=== PATIENT | male | born 1975 | race Caucasian/White ===

== ENCOUNTER 2016-12-15 17:17 | Emergency (ER) | payer BC | END 2016-12-15 17:20 | disposition left against medical advice (07) | LOC: UCEAST 17:17 | DX: M62.830 Muscle spasm of back (principal); Z53.21 Procedure and treatment not carried out due to patient leaving prior to being seen by health care provider ==

== ENCOUNTER 2016-12-15 17:53 | Emergency (ER) | payer BC | END 2016-12-15 19:39 | disposition left against medical advice (07) | LOC: UCEAST 17:53 | DX: M62.830 Muscle spasm of back (principal); Z53.21 Procedure and treatment not carried out due to patient leaving prior to being seen by health care provider ==

== ENCOUNTER 2017-06-16 07:22 | Emergency (ER) | payer BC ==
--- NOTE | 2017-06-16 07:28 | UC ---
Back Pain HPI - HPI Summary HPI Summary: 41 YEAR OLD MALE PRESENTS WITH COMPLAINS OF BACK PAIN. - History of Current Complaint Stated Complaint: BACK PAIN Time Seen by Provider: 06/16/17 07:26 Hx Obtained From: Patient Onset/Duration: Sudden Onset Timing: Lasting Hours Severity Initially: Moderate Severity Currently: Moderate Pain Scale Used: 0-10 Numeric - 5 - Allergies/Home Medications Allergies/Adverse Reactions: Allergies Allergy/AdvReac Type Severity Reaction Status Date / Time Naproxen AdvReac SEVERE Verified 02/23/17 07:44 MOUTH SORES ENVIRONMENTAL Allergy Unknown Uncoded 02/23/17 07:44 Reaction Details PMH/Surg Hx/FS Hx/Imm Hx Previously Healthy: Yes - Surgical History Surgical History: Yes Surgery Procedure, Year, and Place: RIGHT HUMERUS BONE TUMOR( BENIGN) REMOVED, [facility] [place] [facility] [place] Left shoulder surgery clavicle excision, BACK SURGERY 11/28/15. L meniscus removal, L3-L4 DISCECTOMY - Family History Known Family History: Positive: Unknown - he is unaware of any respiratory problems in family, Hypertension - Social History Alcohol Use: Occasionally Alcohol Amount: 2/DAY Substance Use Type: None Smoking Status (MU): Never Smoked Tobacco - Immunization History Most Recent Influenza Vaccination: 2014/2015 Review of Systems Constitutional: Negative Skin: Negative Eyes: Negative ENT: Negative Respiratory: Negative Cardiovascular: Negative Gastrointestinal: Negative Genitourinary: Negative Motor: Negative Neurovascular: Negative Musculoskeletal: Other: - LOWER BACK PAIN Neurological: Negative Psychological: Negative Physical Exam Triage Information Reviewed: Yes Eye Exam: Normal ENT Exam: Normal Dental Exam: Normal Neck exam: Normal Neck: Positive: 1 Respiratory Exam: Normal Cardiovascular Exam: Normal Abdominal Exam: Normal Musculoskeletal: Positive: Other: - LOWER BACK PAIN Neurological Exam: Normal Psychological Exam: Normal Skin Exam: Normal Back Pain Course/Dx - Differential Dx/Diagnosis Provider Diagnoses: LOWER BACK PAIN
[2017-06-16 07:44] VITALS: BP 141/82
--- NOTE | 2017-06-16 08:31 | UC ---
Carmen Guaman Alfonso, scribed for Noe Rutledge MD on 06/16/17 at 0755 . Back Pain HPI - HPI Summary HPI Summary: This patient is a 41 year old M presenting to [facility] with a chief complaint of back pain since 0620 this morning. This morning when he was getting dressed he found himself on the floor with a lumbar spasm which I have been dealing with for years. It has been over a year since his last back spasms. Last week he started exercising his abdomen which he believes may be a contributing factor. The patient rates the pain 10/10 in severity. Symptoms aggravated by movement and sitting. Symptoms alleviated by standing. Patient denies CP, SOB, leg pain, buttock pain, bowel symptoms, and urinary symptoms. He denies any trauma. He is employed as a deputy probation officer. History of weight lifting and wrestling. PMHx of chronic back pain. Patients medications reviewed this visit. - History of Current Complaint Chief Complaint: UCBackPain Stated Complaint: BACK PAIN Time Seen by Provider: 06/16/17 07:26 Hx Obtained From: Patient Onset/Duration: Sudden Onset, Lasting Hours - 0620 this morning, Still Present Timing: Constant Severity Initially: Moderate Severity Currently: Moderate Pain Intensity: 10 Pain Scale Used: 0-10 Numeric Back Pain: Is Discrete @ - Back pain Character: Spasmodic Aggravating: Movement - and sitting Alleviating: Position - Standing Associated Signs And Symptoms: Positive: Other - Patient denies CP, SOB, leg pain, buttock pain, bowel symptoms, and urinary symptoms. - Allergies/Home Medications Allergies/Adverse Reactions: Allergies Allergy/AdvReac Type Severity Reaction Status Date / Time Naproxen AdvReac SEVERE Verified 06/16/17 07:35 MOUTH SORES ENVIRONMENTAL Allergy Unknown Uncoded 06/16/17 07:35 Reaction Details PMH/Surg Hx/FS Hx/Imm Hx Previously Healthy: No - Chronic back pain - Surgical History Surgical History: Yes Surgery Procedure, Year, and Place: [place]( [place] [facility] [place] surgery clavicle excision, BACK SURGERY 11/28/15. L meniscus removal, L3-L4 DISCECTOMY - Family History Known Family History: Positive: Hypertension - Social History Alcohol Use: Occasionally Alcohol Amount: 2/DAY Substance Use Type: None Smoking Status (MU): Never Smoked Tobacco - Immunization History Most Recent Influenza Vaccination: 2015 Review of Systems Respiratory: Other - Negative SOB Cardiovascular: Other - Negative CP Gastrointestinal: Other - Negative bowel symptoms Genitourinary: Other - Negative urinary symptoms Musculoskeletal: Other: - Back pain; negative leg pain, buttock pain. All Other Systems Reviewed And Are Negative: Yes Physical Exam Triage Information Reviewed: Yes Vital Signs: Initial Vital Signs Temp 99.0 F 06/16/17 07:35 Pulse 88 06/16/17 07:35 Resp 16 06/16/17 07:35 BP 141/82 06/16/17 07:35 Pulse Ox 96 06/16/17 07:35 Vital Signs Reviewed: Yes - Additional Comments The patient is well-nourished in mild pain distress. The skin is warm and dry and skin color reflects adequate perfusion. HEENT: The head is normocephalic and atraumatic. The pupils are equal and reactive. The conjunctivae are clear and without drainage. Nares are patent and without drainage. Mouth reveals moist mucous membranes and the throat is without erythema and exudate. The external ears are intact. The ear canals are patent and without drainage. The tympanic membranes are intact. Neck is supple with full range of motion and non-tender. There are no carotid bruits. There is no neck vein distension. Respiratory: Chest is non-tender. Lungs are clear to auscultation and breath sounds are symmetrical and equal. Cardiovascular: Heart is regular rate and rhythm. There is no murmur or rub auscultated. Pulses are symmetrical and equal. Musculoskeletal: Patient is unable to sit or lie down for exam. Marked muscles spasm of the paravertebral musculature of the left lower thoracic and lumbar region. Paravertebral musculature spasm of the right not as pronounced. Motor strength appears grossly normal. There is good capillary refill. There is no peripheral edema or calf tenderness elicited. Neurological: Patient is alert and cooperative. The patient has symmetrical motor strength in all four extremities. Cranial nerves are grossly intact. Psychiatric: The patient has an appropriate affect. Back Pain Course/Dx - Course Course Of Treatment: This patient is a 41 year old M presenting to [facility] with a chief complaint of back pain since 0620 this morning. This morning when he was getting dressed he found himself on the floor with a lumbar spasm which I have been dealing with for years. It has been over a year since his last back spasms. Last week he started exercising his abdomen which he believes may be a contributing factor. The patient rates the pain 10/10 in severity. Symptoms aggravated by movement and sitting. Symptoms alleviated by standing. Patient denies CP, SOB, leg pain, buttock pain, bowel symptoms, and urinary symptoms. He denies any trauma. He is employed as a deputy probation officer. History of weight lifting and wrestling. PMHx of chronic back pain. Patients medications reviewed this visit. Patient instructed to FOLLOW UP TODAY WITH YOUR PRIMARY CARE PROVIDER FOR HIGH BLOOD PRESSURE NOTED TODAY. Patient will be discharged with prescription for Soma and follow up from Dr. De Leon PCP. The patient is agreeable with this plan. - Differential Dx/Diagnosis Provider Diagnoses: Acute lumbar strain Discharge - Discharge Plan Condition: Stable Disposition: HOME Prescriptions: Carisoprodol TAB* [Soma TAB*] 350 mg PO Q6H PRN #30 tab MDD 4 PRN Reason: muscle spasm Patient Education Materials: Low Back Strain (ED) Referrals: Chava De Leon MD [Primary Care Provider] - 1 Day Additional Instructions: FOLLOW UP TODAY WITH YOUR PRIMARY CARE PROVIDER FOR HIGH BLOOD PRESSURE NOTED TODAY AT 141/82. The documentation as recorded by the Carmen ordoñez Alfonso accurately reflects the service I personally performed and the decisions made by , Noe Rutledge MD.
== END 2017-06-16 08:15 | disposition home or self-care (01) ==
LOC: UCEAST 07:22
DX: S39.012A Strain of muscle, fascia and tendon of lower back, initial encounter (principal); W18.30XA Fall on same level, unspecified, initial encounter; Y93.89 Activity, other specified; Y92.9 Unspecified place or not applicable; Z88.6 Allergy status to analgesic agent
CPT/HCPCS: 99212; G0463

== ENCOUNTER 2018-05-20 10:30 | Emergency (ER) | payer BC ==
[2018-05-20 10:36] VITALS: BP 120/71
[2018-05-22 19:29] LABS: Bordetella pertussis PCR Negative
--- NOTE | 2018-06-01 00:24 | UC ---
Respiratory Complaint HPI - HPI Summary HPI Summary: Cough for 10 days - History of Current Complaint Chief Complaint: UCRespiratory Stated Complaint: COUGH Time Seen by Provider: 05/20/18 11:18 Hx Obtained From: Patient Onset/Duration: Gradual Onset, Lasting Days - 10 Timing: Constant Pain Intensity: 0 Pain Scale Used: 0-10 Numeric Character: Cough: Nonproductive Alleviating Factors: OTC Meds - without relief - Allergies/Home Medications Allergies/Adverse Reactions: Allergies Allergy/AdvReac Type Severity Reaction Status Date / Time naproxen [From Naprosyn] Allergy severe Verified 05/20/18 11:20 mouth sores ENVIRONMENTAL Allergy Unknown Uncoded 05/20/18 11:20 Reaction Details Home Medications: Home Medications Lisinopril [Lisinopril 2.5 MG-] 2.5 mg PO DAILY 05/20/18 [History Confirmed 11/06] PMH/Surg Hx/FS Hx/Imm Hx Previously Healthy: No Cardiovascular History: Hypertension - Surgical History Surgical History: Yes Surgery Procedure, Year, and Place: RIGHT HUMERUS BONE TUMOR( BENIGN) REMOVED, [facility] [place]. Left shoulder surgery clavicle excision, BACK SURGERY 11/28/15. L meniscus removal, L3-L4 DISCECTOMY - Family History Known Family History: Positive: Unknown - he is unaware of any respiratory problems in family, Hypertension - Social History Occupation: Employed Full-time Alcohol Use: Occasionally Alcohol Amount: 2/DAY Substance Use Type: None Smoking Status (MU): Never Smoked Tobacco - Immunization History Most Recent Influenza Vaccination: 2014/2015 Review of Systems Constitutional: Negative Skin: Negative Eyes: Negative ENT: Negative Respiratory: Cough Cardiovascular: Negative Gastrointestinal: Negative Genitourinary: Negative Motor: Negative Neurovascular: Negative Musculoskeletal: Negative Neurological: Negative Psychological: Negative Is Patient Immunocompromised?: No All Other Systems Reviewed And Are Negative: Yes Physical Exam Triage Information Reviewed: Yes Appearance: Well-Appearing, No Pain Distress, Well-Nourished Vital Signs: Initial Vital Signs Temp 99 F 05/20/18 10:33 Pulse 65 05/20/18 10:33 Resp 16 05/20/18 10:33 BP 120/71 05/20/18 10:33 Pulse Ox 99 05/20/18 10:33 Vital Signs Reviewed: Yes Eye Exam: Normal Eyes: Positive: Conjunctiva Clear ENT Exam: Normal ENT: Positive: Normal ENT inspection, Hearing grossly normal, Pharynx normal, TMs normal, Uvula midline. Negative: Nasal congestion, Trismus, Muffled voice, Hoarse voice, Dental tenderness, Sinus tenderness Dental Exam: Normal Neck exam: Normal Neck: Positive: Supple, Nontender, No Lymphadenopathy Respiratory Exam: Normal Respiratory: Positive: Chest non-tender, Lungs clear, Normal breath sounds, No respiratory distress Cardiovascular Exam: Normal Cardiovascular: Positive: RRR, No Murmur, Pulses Normal, Brisk Capillary Refill Musculoskeletal Exam: Normal Musculoskeletal: Positive: Strength Intact, ROM Intact, No Edema Neurological Exam: Normal Neurological: Positive: Alert, Muscle Tone Normal Psychological Exam: Normal Skin Exam: Normal UC Diagnostic Evaluation - Laboratory O2 Sat by Pulse Oximetry: 99 Respiratory Course/Dx - Course Course Of Treatment: swab for pertussis, zithromax, tessalon follow with pcp - Differential Dx/Diagnosis Provider Diagnoses: acute cough Discharge - Sign-Out/Discharge Documenting (check all that apply): Patient Departure - Discharge Plan Condition: Stable Disposition: HOME Prescriptions: Azithromycin TAB* [Zithromax TAB (Z-CARLA) 250 mg #6 tabs] 2 tab PO .TODAY, THEN 1 DAILY #1 carla Benzonatate CAP* [Tessalon 100 MG CAP*] 100 - 200 mg PO TID PRN #30 cap PRN Reason: Cough Patient Education Materials: Pertussis (ED), Acute Cough (ED) Referrals: Chava De Leon MD [Primary Care Provider] - If Needed - Billing Disposition and Condition Condition: STABLE Disposition: Home
== END 2018-05-20 11:48 | disposition home or self-care (01) ==
LOC: UCEAST 10:30
DX: R05 Cough (principal); I10 Essential (primary) hypertension; Z88.6 Allergy status to analgesic agent
CPT/HCPCS: 87798; 99212; G0463

== ENCOUNTER 2019-05-19 09:10 | Emergency (ER) | payer BC ==
[2019-05-19 09:27] VITALS: BP 132/86
--- NOTE | 2019-05-19 10:02 | UC ---
Neck Pain HPI - HPI Summary HPI Summary: 43-year-old male who has a history of torticollis. He awakened Friday, 5 days ago, with neck spasms. He then proceeded to go on vacation and kayak and do other things which did not improve the torticollis. He denies any numbness or tingling in his extremities. He denies any injury. - History of Current Complaint Chief Complaint: UCBackPain Stated Complaint: NECK PAIN Time Seen by Provider: 05/19/19 09:37 Hx Obtained From: Patient Onset/Duration Of Injury/Symptoms: Days - Patient awakened Friday morning with sore stiff neck. No recent illness, no fever. Mechanism Of Injury: No Known Trauma Timing: Constant Severity: Moderate Pain Intensity: 4 Location: Diffuse - Patient states mostly left side of neck however when he awakened it was more on the right side of his neck. He then proceeded to go on vacation and doing a lot of activities which strain the area. Character: Stiff, Spasmotic Aggravating Factors: Movement Alleviating Factors: Nothing Associated Signs & Symptoms: Negative: Swelling, Redness, Bruising, Fever, Nuchal Rigity, Weakness, Headache, Paresthesia Related History: Other - Has a history of torticollis as well as other types of muscle strain and spasm. He is a safety instruction police officer. - Allergies/Home Medications Allergies/Adverse Reactions: Allergies Allergy/AdvReac Type Severity Reaction Status Date / Time naproxen [From Naprosyn] Allergy severe Verified 05/19/19 09:21 mouth sores ENVIRONMENTAL Allergy Unknown Uncoded 05/19/19 09:21 Reaction Details Home Medications: Home Medications Ibuprofen TAB* [Motrin TAB* 800 MG] 800 mg PO ONCE 05/19/19 [History Confirmed 05/19/19] PMH/Surg Hx/FS Hx/Imm Hx Previously Healthy: Yes Cardiovascular History: Hypertension Respiratory History: Asthma - Surgical History Surgical History: Yes Surgery Procedure, Year, and Place: RIGHT HUMERUS BONE TUMOR( BENIGN) [place]OV[place] [facility] [place] Left shoulder surgery clavicle excision, BACK SURGERY 11/28/15. L meniscus removal, L3-L4 DISCECTOMY - Family History Known Family History: Positive: Unknown - he is unaware of any respiratory problems in family, Hypertension - Social History Occupation: Employed Full-time Alcohol Use: Daily Alcohol Amount: 2/DAY Substance Use Type: None Smoking Status (MU): Never Smoked Tobacco - Immunization History Most Recent Influenza Vaccination: 2014/2015 Review of Systems All Other Systems Reviewed And Are Negative: Yes Motor: Positive: Decreased ROM - Decreased range of motion of his neck. Musculoskeletal: Positive: Decreased ROM Is Patient Immunocompromised?: No Physical Exam Triage Information Reviewed: Yes Appearance: Well-Appearing, No Pain Distress, Well-Nourished Vital Signs: Initial Vital Signs Temp 98.5 F 05/19/19 09:22 Pulse 61 05/19/19 09:22 Resp 18 05/19/19 09:22 BP 132/86 05/19/19 09:22 Pulse Ox 99 05/19/19 09:22 Vital Signs Reviewed: Yes ENT: Positive: Normal ENT inspection, Pharynx normal, TMs normal, Uvula midline Neck: Positive: No Lymphadenopathy, Other: - Patient has some spasm of the left sternocleidomastoid muscle. He is able to flex without difficulty but not extend. He has limited lateral range of motion, and limited rotation of his neck because of the muscle spasms. Respiratory: Positive: Lungs clear, Normal breath sounds, No respiratory distress, No accessory muscle use Cardiovascular: Positive: RRR, No Murmur, Pulses Normal, Brisk Capillary Refill Musculoskeletal: Positive: Strength Intact, No Edema Neurological: Positive: Alert, Muscle Tone Normal - The peripheral pulses neuro sensation and capillary refill. Cranial nerves II through XII are intact, good arm and leg strength against resistance. Psychological Exam: Normal Skin Exam: Normal Neck Pain Course/Dx - Course Course Of Treatment: I believe this point time the patient is experiencing a torticollis of which she has a history. He does work as a safety instruction police officer. I did check I stop and there is no history other than the most recent time he received Soma for treatment and that was July 2018 and he received 60 tablets. The patient states Soma is usually what works for him for his muscle spasms therefore I did prescribe that, 15 tablets and told him to follow-up with his primary care provider if no improvement. He is to go to the emergency room if he has any numbness or tingling in his extremities. Patient is agreeable with this plan of action. - Differential Dx/Diagnosis Provider Diagnosis: Torticollis Discharge - Sign-Out/Discharge Documenting (check all that apply): Patient Departure All imaging exams completed and their final reports reviewed: No Studies - Discharge Plan Condition: Fair Disposition: HOME Prescriptions: Carisoprodol [Soma] 250 mg PO TID PRN 5 Days #15 tablet MDD 3 PRN Reason: Pain Patient Education Materials: Spasmodic Torticollis (ED) Referrals: Chava De Leon MD [Primary Care Provider] - Additional Instructions: Apply heat to the sore area intermittently, avoid movements that cause pain, follow-up with your primary care provider if no improvement in 3 or 4 days, go to the emergency room if you develop any numbness or tingling in your extremities. - Billing Disposition and Condition Condition: FAIR Disposition: Home - Attestation Statements Provider Attestation: I was available for consult. This patient was seen by the SHERLYN. The patient was not presented to, seen by, or examined by me. Ryan Escamilla MD
--- NOTE | 2019-05-19 15:33 | UC ---
- Progress Note Progress Note: Pt returned and said Pharmacies within 50 mile radius do not have SOMA 250 but do have SOMA 350. Computers were down at the time so I could not immediately send the revised RX until now. Course/Dx - Diagnoses Provider Diagnoses: Torticollis Discharge - Sign-Out/Discharge Documenting (check all that apply): Post-Discharge Follow Up All imaging exams completed and their final reports reviewed: No Studies - Discharge Plan Condition: Fair Disposition: HOME Prescriptions: Carisoprodol TAB* [Soma TAB*] 350 mg PO TID PRN #15 tab MDD 3 PRN Reason: Pain Patient Education Materials: Spasmodic Torticollis (ED) Referrals: Chava De Leon MD [Primary Care Provider] - Additional Instructions: Apply heat to the sore area intermittently, avoid movements that cause pain, follow-up with your primary care provider if no improvement in 3 or 4 days, go to the emergency room if you develop any numbness or tingling in your extremities. - Billing Disposition and Condition Condition: FAIR Disposition: Home - Attestation Statements Provider Attestation: I was available for consult. This patient was seen by the SHERLYN. The patient was not presented to, seen by, or examined by me. Ryan Escamilla MD
== END 2019-05-19 10:06 | disposition home or self-care (01) ==
LOC: UCEAST 09:10
DX: M43.6 Torticollis (principal); I10 Essential (primary) hypertension; J45.909 Unspecified asthma, uncomplicated
CPT/HCPCS: 99212; G0463